=== PATIENT | male | born 1945 | race Caucasian/White ===

== ENCOUNTER 2017-09-20 07:19 | Outpatient (CLI) | payer OTHER | END 2017-09-20 07:22 | disposition home or self-care (01) | LOC: TOM 07:19 | DX: K56.50 Intestinal adhesions [bands], unspecified as to partial versus complete obstruction (principal); I50.9 Heart failure, unspecified; Z95.810 Presence of automatic (implantable) cardiac defibrillator; R06.09 Other forms of dyspnea ==